=== PATIENT | female | born 1995 | race Caucasian/White ===

== ENCOUNTER 2016-11-11 22:19 | Emergency (ER) | payer OTHER ==
--- NOTE | ~2016-11-11 | CR170 ---
[facility] A Service of [facility] RADIOLOGY TEXT RESULTS PATIENT: JOEY RAMIREZ LOCATION: SED : [birth year] UNIT #: [id number] AGE: [address]: Lisa Negron SEX: F ORDER DR: [id number] [place] [id number] E MR#: [id number] Acc #: [id number] NAME: JOEY RAMIREZ : 1995 SEX: F STUDY DATE/TIME: 11/11/2016 22:17 UNIT: SED ROOM: STUDY DESCRIPTION: CR Knee 2 Views Rt Attending Physician: Lisa Negron Pa-C Ordering Physician: Lisa Negron Pa-C Primary Care Physician: Perez Mcfadden M.D. MEDICAL IMAGING REPORT This report is preliminary unless electronic signature is present. EXAM 2 views of the right knee INDICATIONS Right knee pain for 3 days. No known injury. FINDINGS AP and lateral projection of the knee shows smooth articular anatomy without indication of fracture or dislocation at the major weight-bearing surface of the knee. There is no indication of radiopaque foreign body about the knee surface or joint effusion. IMPRESSION Normal 2 views of the right knee. Negative. Dictated by... Mile Bautista M.D. THIS IS AN ELECTRONICALLY VERIFIED REPORT Mile Bautista M.D. at 11/12/2016 10:47 AM AFF/psc TD: 11/11/2016 23:45 JOB #: [id number] MEDICAL IMAGING REPORT Page 1 of 1
[~2016-11-11 22:19] MED LIST: DARVOCET-N 1001 TAB PO; IBUPROFEN PO; NO MEDICATIONS
== END 2016-11-11 23:40 | disposition home or self-care (01) ==
LOC: SED 22:19
DX: M25.561 Pain in right knee (principal); F17.210 Nicotine dependence, cigarettes, uncomplicated; Z98.890 Other specified postprocedural states; Z91.013 Allergy to seafood
CPT/HCPCS: 73560; 99283